=== PATIENT | male | born 1955 | race Caucasian/White ===

== ENCOUNTER 2022-02-17 13:30 | Outpatient (RCR) | payer MEDICARE, SELFPAY ==
--- NOTE | 2022-01-22 15:07 | PTOPEVAL ---
Thank you for referring Maki Guan to [facility].? He is scheduled to be seen for therapy? 1 x/week for 4 weeks. Please review, sign, date and return this plan of care PUMA. I agree with and certify that the following plan of care is medically necessary. Referring Physician Date Attending Provider: Mira Davis NP Past Medical History Source of Past Medical History Patient Neurological History Hx Neurological Disorders No Significant History Cardiovascular History Hx Cardiac Disorders No Significant History Respiratory History Hx Respiratory Disorders No Significant History Gastrointestinal History Hx Appendectomy Yes Genitourinary History Hx Other Genitourinary Disorders Yes: urinary frequency Musculoskeletal History Hx Other Musculoskeletal Disorders Yes: L knee pain/meniscus- non surgical; Endocrine History Hx Endocrine Disorders No Significant History Other History Hx Cancer Yes: prostate Hx Radiation Therapy Yes Evaluation Information Diagnosis lymphedema- s/p prostate cancer and radiation Onset Jul 2021 Prior Level of Function Activity Level (Last 3 Months) Occupation retired Activity of Daily Living Ability Independent Indoor/Home Mobility Independent Community Mobility Independent Stairs Ability Independent Functional Cognition (Planning, Shopping Independent , Taking Medications) Cooking Yes Cleaning Yes Laundry Yes Shopping Yes Driving Yes Home Setting Home Type House Living Situation With Spouse Comments Additional Prior Level of Function -he reports he feels like he Comments is back to his usual activity level pre radiation; is indep and is now assisting to care for his , who fell and injured herself--he is doing all home tasks and is helping her physically; children do help with some yard work Pain Assessment Pain Scale Pain Scale Used Numeric (1 - 10) Self Report Pain Assessment Bilateral Abdomen Pain Description Aching,Dull Radicular Pain Location dull, ache over lower middle gut- pelvic bone Pain Frequency Intermittent Other Pain Description fullness in abdomen Lowest Pain Intensity 0 Greatest Pain Intensity 3 Other Pain Aggravating Factors after eating
--- NOTE | 2022-02-17 14:26 | PTOPDC ---
Assessment and note entered by Brenda Dominique, PT Evaluation Information Assessment Status Discharge Subjective Information Maki reports: continues to follow with the urologist; taking a new med past few weeks for urinary urgency; feels like the lymphedema therapy and massage has helped some, but continues to have the discomfort in his stomach; agrees to d/c from PT today. Reported Pain Level Pain Score 0: Self Report Additional Pain Score Comments pain range of 0-4/10; feels in lower stomach/ lower pelvic area, little discomfort that comes and goes; borderline nausea after eat; fullness, gas, slight burning, like an inflammation ; tends to have more discomfort after eating breakfast and dinner; discussed trying to do self lymph massage about 30 min after eating to see if it helps; Assessment PT Clinical Summary Maki has received 5 PT sessions for abdominal lymphedema. Compared to the initial evaluation: pain rating for abdominal discomfort is same at the low end 0/10 and at the high rating increased from 3 to 4/10 , but he reports feeling better ; the circumferential trunk measurements are same for 2 of the 3 and 1 increased by 2 cm; He has been educated and is independent with self lymph drainage and HEP for trunk stretching. Discussed with him the option of pelvic floor PT with a specialized therapist, which would require a PT order for pelvic floor. He stated he would see how things go and maybe do it later. Discharge PT services. Plan of Care PT Services Indicated No
== END 2022-02-18 15:44 | disposition home or self-care (01) ==
LOC: ANHPT 13:30
PROVIDERS: PCP Family Medicine Adolescent Medicine
DX: C61 Malignant neoplasm of prostate (principal); R19.8 Other specified symptoms and signs involving the digestive system and abdomen; I89.0 Lymphedema, not elsewhere classified
CPT/HCPCS: 97110; 97140; 97161

== ENCOUNTER 2022-03-08 17:02 | Emergency (ER) | payer MEDICARE, SELFPAY ==
--- NOTE | ~2022-03-08 | XR_ITS ---
EXAM: XR foot LT min 3V DATE: 03/08/2022 17:22 HISTORY: pain/swelling left dorsal foot no injury . COMPARISON: None available. FINDINGS: Decreased mineralization. No fracture or dislocation. No lytic or blastic lesion. Mild sca ttered degenerative change. Dorsally directed midfoot osteophytosis. Plantar enthesopathy. No erosion or periosteal change. Soft tissues within normal limits. IMPRESSION: No acute osseous finding in the left foot. Reviewed, dictated and finalized at location K.
[2022-03-08 17:11] VITALS: BP 123/74; PULSE 79; RESP 16; TEMP 37; O2SAT 100
--- NOTE | 2022-03-08 17:13 | ED.EXTPRO ---
HPI - Extremity Problem General Chief complaint: Extremity Problem,Nontraumatic Stated complaint: lt foot pain Time Seen by Provider: 03/08/22 17:15 Source: patient, family, RN notes reviewed and old records reviewed Mode of arrival: ambulatory Limitations: no limitations History of Present Illness HPI Narrative: 66-year-old male accompanied by spouse presents to express care with complaints of left foot pain across the dorsal aspect of his left foot which has increased since December. Patient reports that his had injury to left arm with severe humeral fracture and he has had to be up on his feet more and going up and down steps more caring for her, cooking and doing laundry. Patient reports as the day progresses he notes more swelling and discomfort to his left dorsal foot area. Patient reports that he think he had a fracture of this foot many years ago and has had sprains of his feet and ankles over the years. Patient has history of prostate cancer with radiation and prostatectomy concerned about demineralization noted on x-ray finding. Copy of x-ray given to patient for [facility] Complaint: other (left foot pain and swelling) Severity scale (1-10): 2 Related Data Home Medications Medication Instructions Recorded Confirmed Daily Vitamins 03/08/22 Allergies Allergy/AdvReac Type Severity Reaction Status Date / Time No Known Allergies Allergy Unknown Verified 12/27/11 11:40 Review of Systems Review of Systems: CONSTITUTIONAL: Denies fever, chills, or sweats. EYES: Denies visual changes, redness, or discharge. ENT: Denies rhinorrhea, congestion, sore throat, or otalgia. CARDIOVASCULAR: Denies chest pain, palpitations, or edema. RESPIRATORY: Denies cough or dyspnea. GASTROINTESTINAL: Denies abdominal pain, nausea, vomiting, or diarrhea. GENITOURINARY: Denies dysuria or hematuria. SKIN: Denies rash or itching. MUSCULOSKELETAL: Denies back pain, positive for dorsal aspect of left forefoot discomfort with some intermittent swelling., or myalgia. NEUROLOGIC: Denies headache, numbness, or weakness. PSYCHIATRIC: Denies anxiety or depression. All systems reviewed & are unremarkable except as noted in HPI and below PMFSH Past Medical History Medical History (Updated 03/08/22 @ 18:20 by Betzaida Cardoza NP) Injury of meniscus of left knee no surgery Prostate cancer Surgical History Surgical History (Updated 03/08/22 @ 18:11 by Betzaida Cardoza NP) H/O prostatectomy with radiation treatment History of nasal septoplasty Hx of appendectomy Social History Social History (Updated 03/08/22 @ 18:11 by Betzaida Cardoza NP) Smoking status: Never smoker Alcohol intake: current Alcohol use details: rare Substance use: never Living arrangements: with family Occupation/Education: retired Gender identity (if verbalized by the patient): Male Comments At time of signature, agree with nursing past medical, surgical, social and family history. There is no relevant family history pertinent to the presenting complaint Exam Narrative: GENERAL: Well-appearing, well-nourished, and in no acute distress. HEAD: Normocephalic, atraumatic. EYES: PERRLA and EOMI. ENT: Nares clear, no rhinorrhea or epistaxis. Mucous membranes moist.TM's normal with good light reflex, throat pink with no lesions or exudates. NECK: Supple.no lymphadenopathy CHEST: Clear to auscultation. No respiratory distress. SAO2 100% on room air HEART: Regular rate and rhythm. No murmur heard. Normal peripheral pulses. ABDOMEN: Soft, nontender, nondistended, normal active bowel sounds. EXTREMITIES: Normal range of motion. Trace edema noted to dorsal mid foot aspect of left foot, strong pulses to left foot, full mobility of left foot noted, with foot warm and nail beds having brisk refill, states only mild pain to foot at this time, wearing good supportive shoes. SKIN: Warm, dry, no rash. NEURO: No focal deficit
== END 2022-03-08 17:55 | disposition home or self-care (01) ==
PROVIDERS: Emergency Provider Registered Nurse; PCP Family Medicine Adolescent Medicine
DX: M25.572 Pain in left ankle and joints of left foot (principal); Z85.46 Personal history of malignant neoplasm of prostate
CPT/HCPCS: 73630; 99213; G0463

== ENCOUNTER → 2022-05-13 13:54 | Outpatient (CLI) | payer MEDICARE, SELFPAY ==
--- NOTE | ~2022-05-13 | MR_ITS ---
EXAMINATION: MR foot LT wo con DATE: 05/13/2022 14:39 INDICATION: Left foot stress fracture was 6 months of progressively worsening lateral left hindfoot p ain TECHNIQUE: Magnetic resonance imaging (MRI) of the left mid and hindfoot was performed without intrav enous contrast. Sequences included sagittal T1-weighted FSE, sagittal fluid sensitive FSE STIR, coron al PD-weighted FS FSE, coronal T1-weighted FSE, axial PD-weighted FS FSE, and axial PD-weighted FSE. A ayo was placed over the site of maximal pain is positioned lateral to the anterior calcaneus. COMPARISON: Left foot radiographs dated 05/11/2022 FINDINGS: Medial ankle ligaments: Deep and superficial deltoid ligaments as well as the spring ligament are normal. Lateral ankle ligaments: The anterior and posterior inferior tibiofibular ligaments are normal. The anterior talofibular, calc aneofibular and posterior talofibular ligaments are normal. Tendons: Achilles tendon is normal. The peroneus longus and brevis tendons are normal. The tibialis anterior a nd extensor hallucis longus and extensor digitorum longus tendons are normal. The tibialis posterior, flexor digitorum longus and flexor hallucis longus tendons are normal. Plantar fascia: Small plantar calcaneal spur at the calcaneal origin of the otherwise normal plantar aponeurosis. Bones/other: Bone alignment is normal. There is normal bone marrow signal throughout. No reactive edema, fracture or pathologic marrow replacing process. Joint spaces and cartilage appear relatively preserved. No ev ident focal chondromalacia. No cortical erosions. The Lisfranc ligament complex is normal. Nonspecifi c subcutaneous edema about the visualized left foot and ankle. Increased prominence of the draining v eins throughout the plantar aspect visualized foot and about the distal lower leg including multiple intramuscular branches which is of indeterminate etiology or significance. Fluid: Visualized amount fluid in the joint space. IMPRESSION: 1. No fracture or other evident acute osseous abnormality. No etiology identified for reported latera l left ankle/hindfoot pain. 2. Nonspecific increased prominence of the veins in the foot and visualized lower leg was of indeterm inate etiology or significance but suggests possibility venous congestion. Could consider further joseph luation with lower extremity venous Doppler study. Reviewed, dictated and finalized at location A. ER INTERN IMPRESSION: 1. No fracture or other evident acute osseous abnormality. No etiology identifi ed for reported lateral left ankle/hindfoot pain. 2. Nonspecific increased prominence of the veins in the foot and visualized low er leg was of indeterminate etiology or significance but suggests possibility v enous congestion. Could consider further evaluation with lower extremity venous Doppler study.
== END ==
PROVIDERS: PCP Family Medicine Adolescent Medicine; Visit Provider Orthopaedic Surgery
DX: M84.375A Stress fracture, left foot, initial encounter for fracture (principal); T14.90XA Injury, unspecified, initial encounter
CPT/HCPCS: 73718

== ENCOUNTER 2023-04-24 05:59 | Emergency (ER) | payer MEDICARE, SELFPAY ==
--- NOTE | ~2023-04-24 | CT_ITS ---
EXAMINATION: CT abdomen pelvis wo con DATE: 04/24/2023 06:49 INDICATION: Flank pain. TECHNIQUE: Computed tomography (CT) of the abdomen and pelvis was performed without intravenous contr ast. Automated exposure control and iterative reconstruction technique were employed. The dose-length product was 282.50 mGy-cm. COMPARISON: None. FINDINGS: The visualized portions of the lung bases demonstrate mild atelectasis. No pleural effusion . The heart size is normal. No pericardial effusion. The liver, gallbladder, spleen, pancreas, adrena l glands, and right kidney are normal. There is a 4 mm stone in distal left ureter with mild left hyd ronephrosis and hydroureter. There are brachytherapy seeds in the prostate. There is diverticulosis o f the colon without evidence of diverticulitis. There are no dilated loops of bowel. The appendix is not visualized. There are no pathologically enlarged lymph nodes. There is no free intraperitoneal fl uid. There is mild lumbar spondylosis. IMPRESSION: 1. 4 mm stone in distal left ureter with mild left hydronephrosis and hydroureter. Reviewed, dictated and finalized at location E. L TENDER IMPRESSION: 1. 4 mm stone in distal left ureter with mild left hydronephrosis and hydroure ter.
[2023-04-24 06:00] VITALS: BP 114/48; PULSE 66; RESP 16; TEMP 36.4; O2SAT 100
[2023-04-24 06:25] VITALS: BP 111/61; PULSE 65; O2SAT 98
[2023-04-24 07:19] VITALS: BP 105/53
[2023-04-24 07:30] VITALS: BP 101/59
[2023-04-24 07:35] LABS: Basophils Percent Auto 0.2 % (0.2-1.2); Eosinophils Absolute Auto 0.1 K/mm3 (0-0.3); Eosinophils Percent Auto 1.4 % (0-4.4); Hematocrit 36.1 % (42.0-52.0); Hemoglobin 12.3 g/dL (14.0-18.0); Immature Granulocyte Absolute 0.01 K/mm3 (0.00-0.031); Immature Granulocyte Percent A 0.2 % (0-0.5); Lymphocytes Absolute Auto 0.57 K/mm3 (0.9-3.2); Lymphocytes Percent Auto 13.2 % (18.3-44.2); Mean Corpuscular HGB Conc 34.1 g/dl (32-36); Mean Corpuscular Hemoglobin 31.4 pg (26-34); Mean Corpuscular Volume 92.1 fl (80-100); Mean Platelet Volume 10.3 fl (7.4-10.4); Monocytes Absolute Auto 0.4 K/mm3 (0.1-0.6); Monocytes Percent Auto 8.1 % (2.6-8.5); Neutrophils Absolute Auto 3.3 K/mm3 (1.3-6.7); Neutrophils Percent Auto 76.9 % (45.5-73.1); Platelet Count Result 161 k/mm3 (150-375); Red Blood Count 3.92 M/mm3 (4.6-6.20); Red Cell Distribution Width 12.3 % (11.5-14.5); White Blood Count 4.3 K/mm3 (4.5-10.0)
[2023-04-24] MEDS: SODIUM CHLORIDE 0.9% IV 1,000 ML 999 ML IV CONT (07:37)
[2023-04-24 07:38] LABS: Appearance Urine Clear (Clear); Bacteria Urine None Seen /hpf; Bilirubin Urine Negative (Negative); Color Urine Yellow (Yellow); Glucose Urine UA Negative (Negative); Ketones Urine 1+ mg/dL (Negative); Leukocyte Esterase Ur Negative LEU/UL (Negative); Nitrate Urine Negative (Negative); Non Pathogenic Casts 0-2; Protein Urine Negative (Negative); Specific Grav Ur 1.012 (1.001-1.035); Squamous Epithelial Cell Urine None seen /hpf (Few); Urobilinogen Urine 0.2 mg/dL (<2.0); WBC Urine 0-5 /hpf
--- NOTE | 2023-04-24 07:38 | ED.GENADULT ---
HPI - General Adult General Chief complaint: Urogenital-Male Stated complaint: L flank pain Time Seen by Provider: 04/24/23 07:37 History of Present Illness HPI narrative: Patient is a 67-year-old male who presents to the emergency department to this morning complaining of left flank pain that started yesterday. Patient admits that he does have a history of kidney stones and states that this feels similar to previous episodes. patient cannot remember if he passed his previous kidney stone as it was over 20 years ago. Patient also states that he feels the urge to urinate, however, every time he goes to the bathroom he is unable to urinate. Patient denies any chest pain, shortness of breath, nausea, vomiting, abdominal pain, dysuria, hematuria, constipation, diarrhea, melena, hematochezia, fevers or chills. Patient also denies any headaches, dizziness, lightheadedness, blurry visions, focal weakness, numbness and or tingling. There are no other modifying, alleviating, or precipitating factors at this time. Related Data Home Medications Medication Instructions Recorded Confirmed Daily Vitamins 03/08/22 06/02/22 calcium carbonate 600 mg calcium 600 mg PO DAILY 04/06/22 06/02/22 (1,500 mg) tablet cholecalciferol (vitamin D3) 50 50 mcg PO DAILY 04/06/22 06/02/22 mcg (2,000 unit) capsule vit C 250 mg-vit E 90 mg-zinc 40 1 tablet PO BID 07/08/22 mg-copper 1 [id number] capsule (PreserVision AREDS-2) Allergies Allergy/AdvReac Type Severity Reaction Status Date / Time No Known Allergies Allergy Unknown Verified 04/24/23 06:26 Review of Systems Review of Systems: All systems are reviewed and are negative unless stated otherwise in the HPI. [facility] Past Medical History Medical History History of kidney stones (~1978) Injury of meniscus of left knee no surgery Prostate cancer Pseudogout of ankle Stress fracture, left foot, initial encounter for fracture Surgical History Surgical History H/O prostatectomy with radiation treatment History of nasal septoplasty Hx of appendectomy (~1989) Family History Family History Father Alzheimer disease Social History Social History Smoking status: Never smoker Alcohol intake: current Alcohol use details: rare Substance use: never Lack of Transportation: No Lack of Food: Never True Current Housing: I Have Housing Concerned About Future Housing: No Difficulty Paying Gas/Electric Bills: No Difficulty Paying for Meds: No Currently Unemployed: No Education: Master's Degree or Higher Difficulty w/ Childcare or Family Care: No Living arrangements: with family Occupation/Education: retired Gender identity (if verbalized by the patient): Male Exam Narrative: General: Alert, awake, afebrile, in no acute distress. HEENT: PERRL, no rhinorrhea, no post nasal drip, oropharynx clear. Neck: Trachea midline, no JVD, no lymphadenopathy. Cardiovascular: Regular rate and rhythm, no murmurs, rubs or gallops, no peripheral edema. Respiratory: Clear to auscultation bilaterally, no tachypnea, no wheezing, no rhonchi, no rubs, no respiratory distress. Abdomen: Soft, nontender, nondistended, no rebound, no guarding, no peritoneal signs. Musculoskeletal: No joint swelling or deformity, normal muscle tone. Skin: No rashes or petechia, no signs of infection. Psychiatric: Alert and oriented, normal behavior and judgment for situation. Neurological: Alert and oriented to person, place, and time. Follows all commands. No focal deficits, speech is clear and fluent. Course Vital Signs Vital signs: Vital Signs Temperature 97.6 F 04/24/23 06:00 Pulse Rate 66 04/24/23 06:00 Respiratory Rate 16 04/24/23 06:
[2023-04-24 07:45] VITALS: BP 112/53
[2023-04-24 07:45] LABS: Add Urine Microscopic? YES
[2023-04-24 07:47] LABS: Alanine Aminotransferase 18 U/L (6-50); Albumin Level 3.8 g/dL (3.5-5.1); Alkaline Phosphatase 89 U/L (38-126); Anion Gap 7 mmol/L (8-16); Aspartate Amino Transferase 25 U/L (17-59); Bilirubin,Total 0.7 mg/dL (0.2-1.3); Blood Urea Nitrogen 13 mg/dL (9-20); Calcium 8.5 mg/dL (8.4-10.2); Carbon Dioxide 27 mmol/L (22-30); Chloride 93 mmol/L (98-107); Estimated CRCL calculation 96 ml/min; Estimated Glomerular Filt Rate > 60; Glucose 100 mg/dL (65-110); Sodium 127 mmol/L (137-145)
[2023-04-24] MEDS: KETOROLAC 15 MG/ML VIAL (*BKC) IV PUSH (07:47)
[2023-04-24] MEDS: ONDANSETRON INJ 4 MG/2 ML VIAL IV PUSH (07:47)
[2023-04-24 08:01] VITALS: BP 116/55
== END 2023-04-24 09:15 | disposition home or self-care (01) ==
PROVIDERS: Student in an Organized Health Care Education/Training Program; Emergency Provider Emergency Medicine; PCP Family Medicine Adolescent Medicine
DX: N13.2 Hydronephrosis with renal and ureteral calculous obstruction (principal); E87.1 Hypo-osmolality and hyponatremia; Z87.442 Personal history of urinary calculi; Z85.46 Personal history of malignant neoplasm of prostate; Z92.3 Personal history of irradiation; Z90.79 Acquired absence of other genital organ(s)
CPT/HCPCS: 36415; 74176; 80053; 81001; 85025; 96374; 96375; 99284; J1885; J2405; J7030

== ENCOUNTER → 2023-05-19 12:48 | Outpatient (CLI) | payer MEDICARE, SELFPAY ==
--- NOTE | ~2023-05-19 | US_ITS ---
Renal-Bladder ultrasound Clinical History: Left ureteral stone Technique: Real-time sonographic imaging of the kidneys and urinary bladder was performed. Findings: The right kidney measures 11.1 cm in length and the left kidney measures 11.9 cm. There is no hydronephrosis or renal calculus identified. Renal cortical echogenicity is within normal limits. No renal mass lesion is identified. The urinary bladder is moderately distended at the time of this exam. No intraluminal echoes are iden tified. No abnormal wall thickening is seen. Impression: Unremarkable ultrasound of the kidneys and urinary bladder. Reviewed, dictated and finalized at location M. [employer] ENG[employer] Impression: Unremarkable ultrasound of the kidneys and urinary bladder.
== END ==
PROVIDERS: PCP Family Medicine Adolescent Medicine; Visit Provider Nurse Practitioner
DX: N20.1 Calculus of ureter (principal)
CPT/HCPCS: 76775

== ENCOUNTER 2024-05-16 14:50 | Outpatient (CLI) | payer MEDICARE, SELFPAY ==
--- NOTE | 2024-05-16 15:07 | ECHO_ITS ---
Patient Info Name: Maki Guan Age: 68 years : 1955 Gender: Male Ht: 75 in Wt: 153 lbs BSA: 1.90 m2 HR: 56 bpm BP: 120 / 65 mmHg Technical Quality: Good Exam Date: 05/16/2024 3:11 PM Exam Location: Echo Lab Patient Status: Outpatient Admit Date: 05/16/2024 Staff Ordering Physician: Giovanni Jasso MD Panama Hat Blocker: Shirley Dawn RDCS Attending Provider: Giovanni Jasso MD Referring Physician: Louisa JASSO; Exam Type: CA echo doppler color flow Study Info Indications - PERICARDIAL EFFUSION Complete two-dimensional, color flow and Doppler transthoracic echocardiogram is performed. Summary 1. Complete two-dimensional, color flow and Doppler transthoracic echocardiogram is performed. 2. Left ventricular chamber dimension is normal. 3. Left ventricular systolic function is normal, estimated at 55-60%. 4. The left ventricular diastolic function is normal. 5. E/e' 6 is not elevated. 6. Dilated inferior vena cava with >50% collapse upon inspiration consistent with elevated right atrial pressure, 10 mmHg. Left Ventricle E/e' 6 is not elevated. Left ventricular chamber dimension is normal. Left ventricular systolic function is normal, estimated at 55-60%. The left ventricular diastolic function is normal. Right Ventricle Right ventricular systolic function is normal and with normal TAPSE 2.2 cm. Right ventricular chamber dimension is normal. Left Atria Left atrial chamber dimension is normal. Right Atria Right atrial chamber dimension is normal. Aortic Valve The aortic valve is trileaflet. There is no aortic valve stenosis. There is no aortic valve regurgitation. Pulmonic Valve There is no pulmonic regurgitation. Mitral Valve There is no mitral valve stenosis. There is no mitral valve regurgitation. Tricuspid Valve There is no tricuspid valve regurgitation. Pericardium/Pleural There is no pericardial effusion. Inferior Vena Cava Dilated inferior vena cava with >50% collapse upon inspiration consistent with elevated right atrial pressure, 10 mmHg. Aorta The aortic root size at the sinus of Valsalva is normal. Left Ventricular Outflow Tract Name Value Normal LVOT 2D LVOT Diameter 2.0 cm LVOT Doppler LVOT Peak Gradient 3 mmHg LVOT Mean Gradient 2 mmHg LVOT VTI 22 cm LVOT VTI/AV VTI Ratio 1.0 LVOT Stroke Volume 71 ml LVOT CO 3.2 l/min LVOT CI 1.7 l/min/m2 Pulmonic Valve Name Value Normal RVOT Doppler RVOT Peak Gradient 1 mmHg PV Doppler PV Peak Gradient 1 mmHg Mitral Valve Name Value Normal MV Doppler MV Decel Hubbard 326 cm/s2 MV PHT 53 ms MV Area (PHT) 4.2 cm2 4.0-5.0 MV Diastolic Function MV E Peak Velocity 59 cm/s MV A Peak Velocity 52 cm/s MV E/A 1.1 MV Decel Time 182 ms MV Annular TDI MV E/e' (Septal) 8.7 <=8.0 MV E/e' (Lateral) 4.7 <=8.0 MV E/e' (Average) 6.7 Tricuspid Valve Name Value Normal Estimated PAP/RSVP RA Pressure 10 mmHg <=5 Aorta Name Value Normal Ascending Aorta Ao Root Diameter (MM) 3.3 cm Ao Root Diam Index (MM) 1.7 cm/m2 Aortic Valve Name Value Normal AV Doppler AV Peak Velocity 107 cm/s AV Peak Gradient 2 mmHg AV Mean Gradient 1 mmHg AV VTI 22 cm AV Area (Cont Eq VTI) 3.2 cm2 >=3.0 AV Area (Cont Eq Shawn) 3.5 cm2 AV Regurgitation 2D LVOT Area 3.2 cm2 Ventricles Name Value Normal LV Dimensions 2D/MM IVS Diastolic Thickness (2D) 1.1 cm 0.6-1.0 LVID Diastole (2D) 4.1 cm 4.2-5.8 LVIW Diastolic Thickness (2D) 1.1 cm 0.6-1.0 LVID Systole (2D) 2.6 cm 2.5-4.0 LVOT Diameter 2.0 cm LV Mass (2D Cubed) 147.77 g 88.00-224.00 LV Mass Index (2D Cubed) 78 g/m2 49-115 Relative Wall Thickness (2D) 0.51 LV Fractional Shortening/Ejection Fraction 2D/MM LV Fractional Shortening (2D) 37 % 25-43 LV EF (2D Teicholz) 67 % 52-72 LV Diastolic Volume (4C MOD) 92 ml LV EF (4C MOD) 53 % LV Diastolic Volume (2C MOD) 73 ml LV EF (2C MOD) 56 % LV Diastolic Volume (BP MOD) 83 ml 62-150 LV Diastolic Volume Index (BP MOD) 44 ml/m2 34-74 LV Systolic Volume (BP MOD) 37 ml 21-61 LV Systolic Volume Index (BP MOD) 20 ml/m2 11-31 LV EF (BP MOD) 55 % 52-72 LV Diastolic Length (4C) 8.0 cm LV Systolic Length (4C) 6.3 cm LV Stroke Volume (4C MOD) 49 ml Atria Name Value Normal LA Dimensions LA Dimension (MM) 4.0 cm 3.0-4.1 LA Volume (4C A-L) 19 ml LA Volume (BP A-L) 23 ml RA Dimensions RA Area (4C) 16.5 cm2 <=18.0 Report Signatures
== END 2024-05-16 14:51 | disposition home or self-care (01) ==
LOC: ANHCARD 14:51
PROVIDERS: PCP Family Medicine Adolescent Medicine; Visit Provider Family Medicine Adolescent Medicine
DX: I31.39 Other pericardial effusion (noninflammatory) (principal); G47.33 Obstructive sleep apnea (adult) (pediatric)
CPT/HCPCS: 93306